=== PATIENT | male | born 1995 | race Caucasian/White ===

== ENCOUNTER 2018-04-15 18:18 | Emergency (ER) | payer SELFPAY ==
[2018-04-15 18:26] VITALS: BP 128/68
[2018-04-15] MEDS ORDERED: IBUPROFEN 600 MG TAB PO ONE (18:27)
== END 2018-04-15 19:58 | disposition left against medical advice (07) ==
DX: Z53.21 Procedure and treatment not carried out due to patient leaving prior to being seen by health care provider (principal)

== ENCOUNTER 2018-07-04 17:25 | Emergency (ER) | payer OTHER ==
[2018-07-04 17:31] VITALS: BP 125/45
--- NOTE | 2018-07-04 18:04 | EDPHY ---
H & P Stated Complaint: fell off skateboard hit L face/head no loc, abrasions Time Seen by Provider: 07/04/18 18:03 HPI/ROS: CHIEF COMPLAINT: Head injury HISTORY OF PRESENT ILLNESS: The patient is referred to the emergency department from the [facility] for evaluation of head injury. He fell off his skateboard earlier today striking his head. Since that time he has had blurry vision and a moderate left frontal headache. The patient has a history of prior facial bone fractures and has had a slight exacerbation of the pain in his left zygomatic arch. Patient did sustain a number of superficial abrasions which were cleaned and dressed at the [facility]. The patient denies any neck pain, chest pain, abdominal pain or additional extremity complaints. The patient is not anticoagulated. He has no significant past medical history. REVIEW OF SYSTEMS: A comprehensive 10 point review of systems is otherwise negative aside from elements mentioned in the history of present illness. Source: Patient Exam Limitations: No limitations - Personal History Current Tetanus/Diphtheria Vaccine: Yes Current Tetanus Diphtheria and Acellular Pertussis (TDAP): Yes Tetanus Vaccine Date: 2017 - Medical/Surgical History Hx Asthma: No Hx Chronic Respiratory Disease: No Hx Diabetes: No Hx Cardiac Disease: No Hx Renal Disease: No Hx Cirrhosis: No Hx Alcoholism: No Hx HIV/AIDS: No Hx Splenectomy or Spleen Trauma: No Other PMH: L facial fractures 11/23 - Social History Smoking Status: Never smoked - Physical Exam Exam: General Appearance: Alert, no distress Head: Tenderness to palpation over the left zygomatic arch, multiple facial abrasions, small hematoma noted to left forehead Eyes: Pupils equal, round, reactive ENT, Mouth: No hemotympanum, no oral trauma Neck: Nontender, trachea midline Respiratory: No chest wall tender, subcutaneous air, lungs clear bilaterally Cardiovascular: Regular rate and rhythm Abdomen: Abdomen is soft and nontender, pelvis stable Skin: Superficial extremity abrasions Back: No midline T/L/S pain Extremities: Nontender, full range of motion Neurological: A&Ox3, normal motor function, normal sensory exam Constitutional: Initial Vital Signs Temperature (C) 37.0 C 07/04/18 17:29 Heart Rate 81 07/04/18 17:29 Respiratory Rate 18 07/04/18 17:29 Blood Pressure 125/45 H 07/04/18 17:29 O2 Sat (%) 98 08/29/18 17:29 O2 Delivery Mode Room Air Allergies/Adverse Reactions: Opioids - Morphine Analogues Allergy (Verified 07/04/18 17:44) Home Medications: Medication Instructions Recorded NK [No Known Home Meds] 04/15/18 Medical Decision Making - Diagnostics Imaging Results: CT head without contrast: Images reviewed by myself and discussed with radiologist Dr. Nic Laird. Impression: Normal CT scan of the head without evidence of intracranial hemorrhage or fracture. ED Course/Re-evaluation: The patient presents to the ED for evaluation of concussive symptoms following head injury. The patient arrives with a GCS of 15. I have cleared his cervical spine via nexus criteria. Given the patient's complaints of a moderate headache and prior history of facial bone fractures a CT scan of the head and facial bones was ordered. I reviewed this study with Dr. Nic Laird at 7:00 p.m. and there is no evidence of an acute injury or fracture. I re-evaluated the patient at 7:00 p.m.. I have discharged him to home with customary concussion aftercare instructions. I have given him return precautions. Plan will be for Tylenol and ibuprofen as needed for pain management. Differential Diagnosis: Differential diagnosis considered includes concussion, intracranial hemorrhage, skull fracture, facial bone fracture Departure - Departure Disposition: Home, Routine, Self-Care Clinical Impression: Concussion Condition: Good Instructions: Concussion (ED) Additional Instructions: 1. Apply antibiotic ointment to abrasions twice a day for the next week. 2. Tylenol and ibuprofen as needed for pain. 3. Your CT scan demonstrates no evidence of bleeding or a obvious fracture. 4. Please return to the ED for markedly worsening headache, uncontrolled vomiting or other concerns. Referrals: LEDY LINTON [Other] - As per Instructions
== END 2018-07-04 18:50 | disposition home or self-care (01) ==
DX: S06.0X9A Concussion with loss of consciousness of unspecified duration, initial encounter (principal); V00.131A Fall from skateboard, initial encounter; Y93.51 Activity, roller skating (inline) and skateboarding